=== PATIENT | male | born 1980 | race Caucasian/White ===

== ENCOUNTER → 2018-11-23 | Outpatient (CLI) | payer SELFPAY | LOC: LAB SRC 09:50 → LAB SHORT 09:50 | DX: Z51.81 Encounter for therapeutic drug level monitoring (principal); Z79.899 Other long term (current) drug therapy | CPT/HCPCS: G0480 ==

== ENCOUNTER 2019-12-16 11:49 | Day surgery (SDC) | payer OTHER ==
[~2019-12-16] VITALS: Ht 172.7 cm; Wt 74.4 kg
[2019-12-16] MEDS ORDERED: VICODIN ES 7.51 EACH PO (12:04)
--- NOTE | 2019-12-16 15:10 | NUR ---
12/16/19 1510 GISELLE MARQUIS PATIENT VSS STABLE. PATIENT MEDICATED FOR PAIN WITH 50 MCG IV FENTANYL THIS RN ENGAGED IN DISCHARGE TEACHING WITH PATIENT WHO VERBALIZED SATISFACTION, DENIES QUESTIONS AT THIS TIME. AWAITING PATIENT'S RIDE TO DISCHARGE PATIENT.
== END 2019-12-16 16:03 | disposition home or self-care (01) ==
LOC: ORSCSDS 11:49
PROVIDERS: Podiatrist Foot & Ankle Surgery
PROC: 0QSM04Z Reposition Left Tarsal with Internal Fixation Device, Open Approach (ICD-10-PCS; principal; 2019-12-16 12:30)
DX: S92.012A Displaced fracture of body of left calcaneus, initial encounter for closed fracture (principal); F17.210 Nicotine dependence, cigarettes, uncomplicated
CPT/HCPCS: C1713; J0171; J0690; J1100; J2250; J2270; J2405; J2704; J3010; J7120

== ENCOUNTER 2020-10-06 19:11 | Emergency (ER) | payer OTHER ==
[~2020-10-06] VITALS: Ht 172.7 cm; Wt 77.1 kg
[~2020-10-06 19:11] MED LIST: VICODIN ES 7.51 EACH PO
[2020-10-06] MEDS ORDERED: METH40 PO (19:25)
== END 2020-10-06 19:58 | disposition home or self-care (01) ==
LOC: ER 19:11
DX: Z02.89 Encounter for other administrative examinations (principal); F17.210 Nicotine dependence, cigarettes, uncomplicated; Z79.891 Long term (current) use of opiate analgesic
CPT/HCPCS: 93005; 93010; 99282-25